=== PATIENT | female | born 1965 | race Caucasian/White ===

== ENCOUNTER 2024-09-19 19:52 | Emergency (ER) | payer MEDICAID ==
[~2024-09-19] VITALS: Ht 167.6 cm; Wt 63.5 kg
[~2024-09-19 19:52] MED LIST: ACET-2605 XX; Folic Acid PO; LACT-246 PO; LEVO100T PO; LORA-259 PO; Neomy Sulf/Bacitrac Zn/Poly TP; Olanzapine PO; PANT40SU2 PO; Prosource PO; Thiamine HCL PO
[2024-09-19 20:59] LABS: APPEARANCE,URINE SLIGHTLY CLOUDY (CLEAR); BILIRUBIN,URINE 1+ (NEGATIVE); BLOOD, URINE 3+ Ery/uL (NEGATIVE); COLOR,URINE DARK YELLOW (YELLOW); KETONES,URINE TRACE mg/dL (NEGATIVE); LEUKOCYTE ESTERASE ,URINE 2+ (NEGATIVE); NITRITE, URINE POSITIVE (NEGATIVE); PROTEIN,URINE TRACE mg/dl (NEGATIVE); UGLUCOSE NEGATIVE (NEGATIVE)
[2024-09-19 21:01] LABS: RBC,URINE 51-80 /HPF (0-2); WBC,URINE 21-50 /HPF (0-3)
[2024-09-19 21:02] LABS: ADD URINE CULTURE YES; BACTERIA,URINE 2+ /HPF (None Seen); YEAST,URINE Many /HPF (None Seen)
[2024-09-19 21:12] LABS: BASOPHILS % (AUTO) 0.4 % (0.0-2.0); EOSINOPHILS # (AUTO) 0.1 K/uL (0.0-0.7); HEMATOCRIT 28 % (33-45); HEMOGLOBIN 9.4 g/dL (11.5-14.8); LYMPHOCYTES # (AUTO) 1.3 K/uL (0.8-4.8); LYMPHOCYTES % (AUTO) 15.8 % (20.0-44.0); MEAN CORPUSCULAR HEMOGLOBIN 31 PG (26.0-33.0); MEAN CORPUSCULAR HGB CONC 33 g/dl (31.0-36.0); MEAN CORPUSCULAR VOLUME 92 fL (82-100); MONOCYTES # (AUTO) 0.5 K/uL (0.1-1.30); MONOCYTES % (AUTO) 6.5 % (2.0-12.0); NEUTROPHILS # (AUTO) 6.1 K/uL (1.8-8.9); NEUTROPHILS % (AUTO) 76.3 % (43.0-81.0); PLATELET COUNT (AUTO) 74 K/uL (150-450); RED BLOOD CELL COUNT(AUTO) 3.09 MIL/uL (4.0-5.2); RED CELL DISTRIBUTION WIDTH 27.7 % (11.5-15.0)
[2024-09-19 21:24] LABS: CALCIUM, SERUM 8.4 mg/dL (8.5-10.1); CREATININE 0.9 mg/dL (0.6-1.3)
[2024-09-19 21:26] LABS: BARBITURATE, URINE NEGATIVE (NEGATIVE); BENZODIAZEPINE, URINE NEGATIVE (NEGATIVE); CANNABINOID, URINE NEGATIVE (NEGATIVE); COCCAINE, URINE NEGATIVE (NEGATIVE); OPIATE, URINE NEGATIVE (NEGATIVE); PHENCYCLIDINE SCREEN,URINE NEGATIVE (NEGATIVE)
[2024-09-19 21:27] LABS: ALCOHOL, BLOOD < 3 mg/dL (0-10); POTASSIUM 2.3 mmol/L (3.5-5.1)
[2024-09-19 21:27] LABS: AMPHETAMINE, URINE POSITIVE (NEGATIVE)
[2024-09-19 21:28] LABS: ACETAMINOPHEN <10 ug/ml (10-30); SALICYLATE < 2.8 mg/dL (2.8-20.0)
[2024-09-19 21:30] LABS: ALBUMIN 1.6 g/dL (3.4-5.0); BILIRUBIN,TOTAL 2.9 mg/dL (0.2-1.0); TOTAL PROTEIN, SERUM 7.8 g/dL (6.4-8.2)
[2024-09-19] MEDS: CEFTRIAXONE 1GM BAG (ER ONLY) 1 GM/50 ML PIGGYBACK IV ONE (21:57)
[2024-09-19] MEDS: POTASSIUM CL. PREMIX PERIPHER. 50 ML IV SCH (22:06)
[2024-09-19 23:26] LABS: ANISOCYTOSIS 1+; BASOPHILS % (MANUAL) 0 % (0.0-2.0); EOSINOPHILS % (MANUAL) 2 % (0-4); LYMPHOCYTES % (MANUAL) 14 % (16-48); MONOCYTES % (MANUAL) 5 % (0-11.0); NEUTROPHILS % (MANUAL) 79 (42-76); PLATELET ESTIMATE DECREASED
[2024-09-19] MEDS: IV NS 0.9% 1,000 ML BAG IV ONE (23:31)
[2024-09-19] MEDS: Magnesium 1 GM/2 ML VIAL IV ONE (23:32)
[2024-09-20 04:31] VITALS: BP 115/67; TEMP 97.9; O2SAT 98
== END 2024-09-20 04:48 | disposition short-term general hospital (02) ==
LOC: ER 19:53
DX: E87.6 Hypokalemia (principal); E03.9 Hypothyroidism, unspecified; N39.0 Urinary tract infection, site not specified; E86.0 Dehydration; R62.7 Adult failure to thrive; R41.82 Altered mental status, unspecified; M79.672 Pain in left foot; Z59.00 Homelessness unspecified; Z79.890 Hormone replacement therapy; Z86.79 Personal history of other diseases of the circulatory system; Z20.822 Contact with and (suspected) exposure to COVID-19
CPT/HCPCS: 99285; 96365; 96366 ×2; 96367; 96375; 87804 ×2; 71045; 73080; 73090; 70450; 85025; 82550; 85007; 81001; 36415; 80053; 82553; 87426; 80143; 80320; 80307; J3475; J7030; J3480; J0696; G0480